=== PATIENT | female | born 1965 | race Caucasian/White ===

== ENCOUNTER 2023-03-24 10:02 | Outpatient (CLI) | payer OTHER, SELFPAY ==
--- NOTE | 2023-03-24 10:15 | CRLHL7_ITS ---
For Patients: As a result of the Century Cures Act, medical imaging exams and procedure reports are released immediately into your electronic medical record. You may view this report before your referring provider. If you have questions, please contact your health care provider. Indication: Leg numbness. Technique: Noncontrast sagittal T1, axial FLAIR, T2, diffusion weighted sequences are provided. No comparisons. Findings: The ventricles, sulci and gyri are normal size, shape and contour for age. The midline structures are centrally located with no evidence of shift. There are no suspicious intra or extra-axial fluid collections. No region of restricted diffusion. Expected flow voids in the cavernous carotids and basilar artery. Impression: 1. No radiographic evidence of acute intracranial abnormalities. Dictated by Ad Hamilton MD @ 03/25/2023 7:48:17 AM (Electronically Signed)
== END 2023-03-24 10:03 | disposition home or self-care (01) ==
LOC: MRI 10:05
PROVIDERS: PCP Family Medicine; Visit Provider Psychiatry & Neurology Neurology
DX: R20.0 Anesthesia of skin (principal)
CPT/HCPCS: 70551

== ENCOUNTER 2023-04-11 08:10 | Outpatient (CLI) | payer OTHER, SELFPAY ==
--- NOTE | 2023-04-11 08:15 | CRLHL7_ITS ---
For Patients: As a result of the Century Cures Act, medical imaging exams and procedure reports are released immediately into your electronic medical record. You may view this report before your referring provider. If you have questions, please contact your health care provider. INDICATION: Paralysis. TECHNIQUE: Multiplanar multisequence noncontrast MR images acquired through the cervical spine. COMPARISON: None. FINDINGS: Reversal of the cervical lordosis. Mild rightward cervical curvature. No acute fracture. No T1 hypointense marrow replacing lesions. The cervical cord is normal in signal intensity. C2-3: No spinal canal or neural foraminal narrowing. C3-4: Ngnt-hb-zfnpzapt disc height loss. Posterior disc osteophyte complex. Left greater than right uncinate spurring. Mild facet arthropathy. Mild spinal canal narrowing. Moderate left and mild right neural foraminal narrowing. C4-5: Moderate disc height loss. Posterior disc osteophyte complex indents the cord. Bilateral uncinate spurring. Mild facet arthropathy. Pkua-rc-cngigdgv spinal canal narrowing. Moderately severe right and razv-ig-osywgdtp left neural foramina narrowing. C5-6: Oxnl-jk-qbqohdgy disc height loss. Mild vertebral body edema. Shallow posterior disc osteophyte complex. Right greater left uncinate spurring. Mild facet arthropathy. Thickening ligamentum flavum. Dtqw-fu-vwcmlwrt spinal canal narrowing. Moderately severe right and mild left neural foraminal narrowing. C6-7: Ccjb-ma-symkkjxi disc height loss. Shallow posterior disc osteophyte complex. Left greater than right uncinate spurring. Mild facet arthropathy. Mild spinal canal narrowing. Arqo-fd-pjprhkvj left and mild right neural foraminal narrowing. C7-T1: Mild facet arthropathy. No spinal canal or neural foraminal narrowing. T1-2: No spinal canal or neural foraminal narrowing. Multiple subcentimeter T2 hyperintense lesions in the thyroid gland, nonspecific. IMPRESSION: 1. Multilevel cervical spondylosis without high-grade spinal canal stenosis or cord signal abnormality. 2. Advanced neural foraminal stenosis on the right at C4-5 and C5-6. Dictated by Ignacio Luna MD @ 04/12/2023 2:23:06 PM (Electronically Signed)
== END 2023-04-11 08:11 | disposition home or self-care (01) ==
LOC: MRI 08:12
PROVIDERS: PCP Family Medicine; Visit Provider Psychiatry & Neurology Neurology
DX: G83.9 Paralytic syndrome, unspecified (principal); M47.892 Other spondylosis, cervical region; M48.02 Spinal stenosis, cervical region; M54.50 Low back pain, unspecified; R20.0 Anesthesia of skin; R53.1 Weakness
CPT/HCPCS: 72141